=== PATIENT | female | born 1940 | race Caucasian/White ===

== ENCOUNTER 2018-01-09 09:47 | Outpatient (REF) | payer OTHER, SELFPAY ==
[2018-01-09 12:32] LABS: Anion Gap 8.6 mmol/L (3-11); BUN 14 mg/dL (7-18); CO2 27.4 mmol/L (21.0-32.0); CREATININE 0.92 mg/dL (0.55-1.02); Calcium 8.5 mg/dL (8.5-10.1); Chloride 107 mmol/L (98-107); Estimated GFR 58.89 (mL/min/1.73m2); Glucose 101 mg/dL (70-100); Potassium 3.8 mmol/L (3.5-5.1); Sodium 143 mmol/L (136-145)
== END 2018-01-09 09:48 ==
LOC: NCHCN 09:47
PROVIDERS: PCP Nurse Practitioner Family; Visit Provider Nurse Practitioner Family
DX: I10 Essential (primary) hypertension (principal)
CPT/HCPCS: 80048

== ENCOUNTER → 2018-03-19 09:23 | Outpatient (BNVA) | payer OTHER, SELFPAY | PROVIDERS: PCP Nurse Practitioner Family; Visit Provider Internal Medicine Cardiovascular Disease | DX: I25.10 Atherosclerotic heart disease of native coronary artery without angina pectoris (principal); I25.5 Ischemic cardiomyopathy; I10 Essential (primary) hypertension; E78.5 Hyperlipidemia, unspecified; R00.2 Palpitations; J44.9 Chronic obstructive pulmonary disease, unspecified | CPT/HCPCS: 99214 ==

== ENCOUNTER 2018-04-06 00:39 | Outpatient (CLI) | payer OTHER, SELFPAY ==
--- NOTE | 2018-04-06 14:00 | MERGE_ITS ---
*[facility]* *[facility]* [address] [place] [address] Date of study: 04/06/2018 Transthoracic Echocardiography M-mode, complete 2D, complete spectral Doppler, and color Doppler *STUDY CONCLUSIONS* Summary: 1. Left ventricle: The cavity size was normal. Systolic function was normal. The estimated ejection fraction was 60-65%. Some parameters suggest diastolic dysfunction. Doppler parameters are consistent with high ventricular filling pressure. 2. Aortic valve: There was mild regurgitation. 3. Mitral valve: There was mild systolic anterior motion of the chordal structures. There was moderate regurgitation. Early systolic MR. 4. Right ventricle: The cavity size was normal. Wall thickness was normal. Systolic function was normal. 5. Atrial septum: No defect or patent foramen ovale was identified. 6. Tricuspid valve: There was moderate regurgitation. 7. Pulmonary arteries: Pulmonary systolic pressure was in the range of 20mm Hg to 30mm Hg. 8. Inferior vena cava: The vessel was patent and normal in size. The respirophasic diameter changes were in the normal range (greater than or equal to 50%), consistent with normal central venous pressure. *PATIENT PRESENTATION* Height: 154.9cm ((61in) ) S/D Pressure: 171 / 80 Weight: 76.7kg ((168.6lb) ) BSA: 1.85m^2 Test start time: 02:10 PM. Test stop time: 03:00 PM. PERFORMING Unknown ORDERING Keara Castillo REFERRING Keara Castillo PERFORMING [facility] ELECTRICIAN SUPERVISOR RT Kody (R)(ESTEFANÍA), [facility] *PROCEDURE DATA* Procedure information: The patient was identified by two identifiers. This study was interpreted by [facility]. Pertinent images and digital data are archived for permanent storage and are available for subsequent review. No prior study was available for comparison. Study status: Routine. Transthoracic echocardiography. M-mode, complete 2D, complete spectral Doppler, and color Doppler. A Transthoracic Echocardiogram was performed. Scanning was performed from the parasternal, apical, subcostal, and suprasternal notch acoustic windows. Images were obtained using an [id number] cardiac ultrasound machine. Image quality was fair. Study completion: The patient tolerated the procedure well. History: PMH: CAD, cardiomyopathy, HTN , *CARDIAC ANATOMY* Left ventricle: The cavity size was normal. Systolic function was normal. The estimated ejection fraction was 60-65%. The tissue Doppler parameters were abnormal. Some parameters suggest diastolic dysfunction. Doppler parameters are consistent with high ventricular filling pressure. Aortic valve: Trileaflet; mildly thickened, mildly calcified leaflets. Doppler: There was no stenosis. There was mild regurgitation. VTI ratio of LVOT to aortic valve: 0.62. Valve area (VTI): 1.6cm^2. Indexed valve area (VTI): 0.9cm^2/m^2. Peak velocity ratio of LVOT to aortic valve: 0.6. Valve area (Vmax): 1.5cm^2. Indexed valve area (Vmax): 0.8cm^2/m^2. Mean velocity ratio of LVOT to aortic valve: 0.62. Valve area (Vmean): 1.6cm^2. Indexed valve area (Vmean): 0.9cm^2/m^2. Mean gradient (S): 6.5mm Hg. Peak gradient (S): 13.7mm Hg. Aorta: Aortic root: The aortic root was normal in size. Ascending aorta: The ascending aorta was mildly dilated. Mitral valve: There was mild systolic anterior motion of the chordal structures. Doppler: There was no evidence for stenosis. There was moderate regurgitation. Early systolic MR. Valve area by pressure half-time: 3.3cm^2. Indexed valve area by pressure half-time: 1.8cm^2/m^2. Peak gradient (D): 4.2mm Hg. Left atrium: The atrium was normal in size. Atrial septum: No defect or patent foramen ovale was identified. Right ventricle: The cavity size was normal. Wall thickness was normal. Systolic function was normal. Pulmonic valve: Doppler: There was no evidence for stenosis. There was mild to moderate regurgitation. Tricuspid valve: Doppler: There was moderate regurgitation. Pulmonary artery: Poorly visualized. Pulmonary systolic pressure was in the range of 20mm Hg to 30mm Hg. Right atrium: The atrium was normal in size. Pericardium: There was no pericardial effusion. Systemic veins: Inferior vena cava: Well visualized. The vessel was patent and normal in size. The respirophasic diameter changes were in the normal range (greater than or equal to 50%), consistent with normal central venous pressure. Baseline ECG: Normal sinus rhythm. Measurements Left ventricle Value Reference LV ID, ED, PLAX 4.6 cm 3.5 - 6.0 LV ID, ES, PLAX 2.8 cm 2.1 - 4.0 LV PW thickness, ED, PLAX 0.9 cm LV end-diastolic volume, 1-p A2C 57 ml LV ejection fraction, 1-p A2C 64 % LV end-diastolic volume, 1-p A4C 71 ml LV ejection fraction, 1-p A4C 59 % LV e', lateral 0.07 m/sec LV E/e', lateral 15 LV e', medial 0.048 m/sec LV E/e', medial 21 LV e', average 0.059 m/sec LV E/e', average 17 Ventricular septum Value Reference IVS thickness, ED, PLAX 0.8 cm LVOT Value Reference LVOT ID, A-P 1.8 cm LVOT area 2.5 cm^2 LVOT peak velocity, S 1.11 m/sec LVOT mean velocity, S 0.75 m/sec LVOT VTI, S 26.2 cm LVOT peak gradient, S 4.9 mm Hg LVOT mean gradient, S 2.6 mm Hg Stroke volume (SV), LVOT DP 66 ml Stroke index (SV/bsa), LVOT DP 36 ml/m^2 Aortic valve Value Reference Aortic valve peak velocity, S 1.8 m/sec Aortic valve mean velocity, S 1.2 m/sec Aortic valve VTI, S 42.0 cm Aortic mean gradient, S 6.5 mm Hg Aortic peak gradient, S 13.7 mm Hg VTI ratio, LVOT/AV 0.62 Aortic valve area, VTI 1.6 cm^2 Velocity ratio, peak, LVOT/AV 0.6 Aortic valve area, peak velocity 1.5 cm^2 Velocity ratio, mean, LVOT/AV 0.62 Aortic valve area, mean velocity 1.6 cm^2 Aortic valve area/bsa, mean velocity 0.9 cm^2/m^2 Aorta Value Reference Aortic root ID, ED 2.6 cm Ascending aorta ID, A-P, S 3.4 cm Left atrium Value Reference LA ID, A-P, ES 3.9 cm LA ID/bsa, A-P 2.1 cm/m^2 <=2.2 LA area, ES, A4C 18.3 cm^2 8.8 - 23.4 LA area, ES, A2C 14 cm^2 LA volume/bsa, ES, 1-p A4C 33 ml/m^2 LA volume, ES, 2-p 41 ml LA volume/bsa, ES, 2-p 22 ml/m^2 LA/aortic root ratio 1.51 Mitral valve Value Reference Mitral E-wave peak velocity 1.03 m/sec Mitral A-wave peak velocity 1.22 m/sec Mitral deceleration time (H) 233 ms 150 - 230 Mitral pressure half-time 68 ms Mitral peak gradient, D 4.2 mm Hg Mitral E/A ratio, peak 0.84 Mitral valve area, PHT, DP 3.3 cm^2 Pulmonary veins Value Reference Pulmonary vein peak velocity, S 0.65 m/sec Pulmonary vein peak velocity, D 0.42 m/sec Pulmonary vein velocity ratio, peak, 1.55 S/D Pulmonary vein A-wave reversal peak 0.43 m/sec velocity Pulmonary vein A-wave reversal 188 ms duration Tricuspid valve Value Reference Tricuspid regurg peak velocity 2.5 m/sec Tricuspid peak RV-RA gradient 24.4 mm Hg Right atrium Value Reference RA area, ES, A4C 16.7 cm^2 8.3 - 19.5 Legend: (L) and (H) danii values outside specified reference range. I have personally reviewed the images and have reviewed and edited the reported findings. Electronically signed by Zurdo Reza MD 04/06/2018 16:54
[2018-04-06 14:19] LABS: Anion Gap 6.3 mmol/L (3-11); BUN 14 mg/dL (7-18); CO2 29.7 mmol/L (21.0-32.0); CREATININE 0.95 mg/dL (0.55-1.02); Calcium 8.5 mg/dL (8.5-10.1); Chloride 105 mmol/L (98-107); Glucose 127 mg/dL (70-100); Potassium 3.5 mmol/L (3.5-5.1); Sodium 141 mmol/L (136-145)
== END 2018-04-06 00:59 ==
PROVIDERS: PCP Nurse Practitioner Family; Visit Provider Internal Medicine Cardiovascular Disease
DX: I25.10 Atherosclerotic heart disease of native coronary artery without angina pectoris (principal); I42.9 Cardiomyopathy, unspecified; I34.0 Nonrheumatic mitral (valve) insufficiency; R06.02 Shortness of breath; I10 Essential (primary) hypertension
CPT/HCPCS: 36415; 80048; 93306

== ENCOUNTER 2018-04-06 02:05 | Outpatient (CLI) | payer OTHER, SELFPAY ==
--- NOTE | 2018-04-29 09:47 | ZIOP_ITS ---
ZIO Patch Report DATE OF DICTATION April 29, 2018 STUDY INDICATION Palpitations. REQUESTING PROVIDER Keara Castillo M.D. FINDINGS The patient was monitored for 12 days and 17 hours. The predominant underlying rhythm was sinus rhythm. Average heart rate in sinus rhythm 68 beats per minute, range 51 to 118 beats per minute. There was rare supraventricular ectopy. There were 22 atrial runs, average heart rate 128 beats per m inute, range 89 to 171 beats per minute. The longest episode lasted 20 beats. There was frequent vent ricular ectopy, 5.3% PVC. There was a single 6 beat ventricular run with an average heart rate of 131 beats per minute. There were no pauses greater than 3 seconds. There was no higher degree heart block. There were 2 pat ient events. All events correlated with PVCs. FINAL INTERPRETATION Frequent PVCs at times symptomatic. Paroxysmal supraventricular tachycardia, symptomatic. Madhu Mobley M.D. CHRISTIN/ne T - 04/29/2018
== END 2018-04-06 02:25 ==
PROVIDERS: PCP Nurse Practitioner Family; Visit Provider Internal Medicine Cardiovascular Disease
DX: R00.2 Palpitations (principal); I49.3 Ventricular premature depolarization; I47.1 Supraventricular tachycardia
CPT/HCPCS: 93225

== ENCOUNTER 2018-04-29 08:11 | Outpatient (CLI) | payer OTHER, SELFPAY | END 2018-04-29 08:31 | PROVIDERS: PCP Nurse Practitioner Family; Referring Provider Internal Medicine Cardiovascular Disease; Visit Provider Student in an Organized Health Care Education/Training Program | DX: R00.2 Palpitations (principal); I49.3 Ventricular premature depolarization; I47.1 Supraventricular tachycardia | CPT/HCPCS: 0298T ==

== ENCOUNTER → 2018-05-13 10:34 | Outpatient (BNVA) | payer OTHER, SELFPAY | PROVIDERS: PCP Nurse Practitioner Family; Referring Provider Nurse Practitioner Family; Visit Provider Orthopaedic Surgery | DX: S42.201A Unspecified fracture of upper end of right humerus, initial encounter for closed fracture (principal); W01.0XXA Fall on same level from slipping, tripping and stumbling without subsequent striking against object, initial encounter | CPT/HCPCS: 99201; 99214 ==

== ENCOUNTER 2018-05-13 10:48 | Outpatient (CLI) | payer OTHER, SELFPAY ==
--- NOTE | 2018-05-13 10:43 | DI.RAD_ITS ---
SYMPTOMS/DIAGNOSIS: INJURY RIGHT SHOULDER: A comminuted mildly displaced fracture of the surgical neck and greater tuberosity of the right humerus is demonstrated. There is no evidence of a dislocation.
== END 2018-05-13 11:08 ==
PROVIDERS: PCP Nurse Practitioner Family; Visit Provider Physician Assistant Surgical
DX: S42.291A Other displaced fracture of upper end of right humerus, initial encounter for closed fracture (principal)
CPT/HCPCS: 99201; 73030

== ENCOUNTER 2018-09-14 13:52 | Outpatient (REF) | payer OTHER, SELFPAY ==
[2018-09-14 18:50] LABS: ALT 21 U/L (12-78); AST 18 U/L (15-37); Albumin 3.6 g/dL (3.4-5.0); Alkaline Phosphatase 125 U/L (46-116); Anion Gap 11.6 mmol/L (3-11); BUN 13 mg/dL (7-18); Bilirubin, Total 0.5 mg/dL (0.2-1.0); CO2 24.4 mmol/L (21.0-32.0); CREATININE 0.93 mg/dL (0.55-1.02); Calcium 8.9 mg/dL (8.5-10.1); Chloride 104 mmol/L (98-107); Estimated GFR 58.01 (mL/min/1.73m2); Glucose 142 mg/dL (70-100); Potassium 3.4 mmol/L (3.5-5.1); Sodium 140 mmol/L (136-145); Total Protein 6.7 g/dL (6.4-8.2)
== END 2018-09-14 14:12 ==
LOC: NCHCN 13:52
PROVIDERS: PCP Nurse Practitioner Family; Visit Provider Nurse Practitioner Family
DX: I10 Essential (primary) hypertension (principal)
CPT/HCPCS: 80053

== ENCOUNTER → 2019-01-14 11:42 | Outpatient (BNVA) | payer OTHER, SELFPAY | PROVIDERS: PCP Nurse Practitioner Family; Visit Provider Internal Medicine Cardiovascular Disease | DX: I25.810 Atherosclerosis of coronary artery bypass graft(s) without angina pectoris (principal); I12.9 Hypertensive chronic kidney disease with stage 1 through stage 4 chronic kidney disease, or unspecified chronic kidney disease; E78.5 Hyperlipidemia, unspecified; J44.9 Chronic obstructive pulmonary disease, unspecified; N18.9 Chronic kidney disease, unspecified | CPT/HCPCS: 99214 ==

== ENCOUNTER 2019-06-15 21:17 | Outpatient (REF) | payer OTHER, SELFPAY ==
[2019-06-15 19:19] LABS: Anion Gap 9.4 mmol/L (3-11); BUN 18 mg/dL (7-18); CO2 26.6 mmol/L (21.0-32.0); CREATININE 0.86 mg/dL (0.55-1.02); Calcium 8.7 mg/dL (8.5-10.1); Chloride 107 mmol/L (98-107); Glucose 135 mg/dL (74-106); Potassium 3.9 mmol/L (3.5-5.1); Sodium 143 mmol/L (136-145)
== END 2019-06-15 21:37 ==
LOC: NCHCN 21:17
PROVIDERS: PCP Nurse Practitioner Family; Visit Provider Nurse Practitioner Family
DX: I10 Essential (primary) hypertension (principal)
CPT/HCPCS: 80048

== ENCOUNTER 2019-07-15 08:48 | Outpatient (CLI) | payer OTHER, SELFPAY | END 2019-07-15 09:08 | PROVIDERS: PCP Nurse Practitioner Family; Visit Provider Internal Medicine Cardiovascular Disease | DX: I25.10 Atherosclerotic heart disease of native coronary artery without angina pectoris (principal); E78.5 Hyperlipidemia, unspecified; Z91.19 Patient's noncompliance with other medical treatment and regimen; I10 Essential (primary) hypertension | CPT/HCPCS: 99214 ==

== ENCOUNTER 2021-06-28 03:44 | Emergency (ER) | payer OTHER, SELFPAY ==
[2021-06-28 03:42] VITALS: BP 157/86; PULSE 78; RESP 18; TEMP 36.3; O2SAT 75
--- NOTE | 2021-06-28 03:45 | RT.EKG_ITS ---
APPROVED REPORT Exam: Resting ECG Reason for Exam: syncope Patient Location: E HR:76 bpm ECG Measurements Heart Rate 76 AXIS [place] 164 P 19 QRSd 86 QRS -23 QT 414 T 85 QTc 466 Conclusion Sinus rhythm...normal P axis, V-rate 60- 99 Physician: no stemi
--- NOTE | 2021-06-28 03:45 | DI.CT_ITS ---
Exam(s) CT HEAD CERV SPINE FACIAL WO EXAM: CT HEAD CERV SPINE FACIAL WO COMPARISON: CT CT head/brain wo con from 05/03/2018 FINDINGS: CT examination of the cervical spine was performed without contrast administration. There are marked degenerative changes of the cervical spine. There is no evidence of acute cervical spine fracture or dislocation. Intervertebral disc spaces are well maintained. Tracheolaryngeal structures appear intact. No cervical mass or adenopathy. Noncontrast cranial CT was performed. There is mild generalized cerebral atrophy and there are patchy areas of decreased attenuation in per iventricular white matter consistent with microvascular ischemic changes. There is a right scalp hem atoma.. No evidence of acute intracranial hemorrhage, mass effect, or midline shift. No calvarial fracture. The orbital and temporal bone structures appear intact. Visualized mastoid air cells and paranasal sinuses appear clear. Additional scanning of the maxillofacial region was performed, no evidence of orbital bony or soft ti ssue injury. No facial fracture seen. Visualized mandible is unremarkable. IMPRESSION: No evidence of acute cervical spine injury. No evidence of acute intracranial injury. No evidence of acute facial fracture. RADIATION DOSE DELIVERED: 1,544.25mGy.cm Total DLP 1,544.25mGy.cm Total DLP CTDIvol DATA REPOSITORY: All CT scans at this facility are submitted to the National Radiology Data Registry (NRDR) Dose Index Registry (DIR) with the [employer] (ACR). RADIATION OPTIMIZATION: All CT scans at this facility use at least one of these dose optimization te chniques: automated exposure control; mA and/or kV adjustment per patient size (includes targeted exa ms where dose is matched to clinical indication); or iterative reconstruction.
--- NOTE | 2021-06-28 03:49 | W.ED.GENAD ---
Discharge Plan Disposition Patient Disposition: HOME Condition: Good Discharge Details Clinical Impression: Fall, Contusion of scalp Primary Care Provider: Karoline Conteh ED Provider: Jose C Shea Home Meds and New Rx's Prescriptions: Continued fluticasone propion-salmeterol [Advair Diskus] 250-50 mcg/dose blister with device 1 inh IH BID RF: 0 (DME) nebulizers Misc See Rx Instructions .ROUTE .MEDSUPPLY Qty: 1 RF: 0 ipratropium-albuterol 0.5 mg-3 mg(2.5 mg base)/3 mL solution for nebulization 3 ml IH TID PRNRF: 0 albuterol sulfate [ProAir HFA] 90 mcg/actuation HFA aerosol inhaler 2 puff IH Q6H PRNRF: 0 potassium chloride [Klor-Con 10] 10 mEq tablet extended release 10 meq PO BID RF: 0 losartan 50 mg tablet 50 mg PO DAILY Qty: 30 RF: 6 metoprolol succinate 50 mg tablet extended release 24 hr 50 mg PO DAILY Qty: 30 RF: 6 furosemide [Lasix] 20 MG tablet 20 mg PO DAILY RF: 0 Spiriva with HandiHaler 1 PUFF capsule, w/inhalation device 30 cap Inhalation DAILY RF: 0 Discharge Instructions Instructions: Contusion in Adults (ED) Additional Instructions: At this time thankfully there is no fracture or bleed in your brain. The contusion on your scalp will take a few weeks to go away. The bruising and contusion on your right eyebrow will also take some time to resolve. It will cause bruising that will go down the right side of your face. Please use ice for the next 48 hours and then heat after that to help it reabsorb. If you notice any worsening of your symptoms, or any new symptoms such as vomiting, diarrhea, fever, chills, shortness of breath, chest pain, numbness, weakness, or fainting , please return immediately to the emergency department for reevaluation. Please follow up with your primary care provider as soon as possible for reassessment and reevaluation. As always, it was a pleasure participating in your medical care today. Referrals: Karoline Conteh [Primary Care Provider] - Medical Decision Making This is an 81-year-old female with a past medical history of hypertension, coronary artery disease with cardiac stent, ischemic cardiomyopathy, COPD, GERD, who lives with her daughter, who presents today after a fall. Patient got up to have a bowel movement this evening, she states she either fell or passed out while on the toilet. She does not recall. She hit her right head and right eyebrow. She was brought in by EMS for further evaluation. Patient is notably stoic, and has no complaints at this time. She denies chest pain, head pain, numbness tingling or weakness. She denies any other complaints, modifying factors, or other historical components. Physical exam demonstrates a notable hematoma over her right temporal bone. A small hematoma over her right upper orbital bone/brow. No active bleeding. Tetanus shot is up-to-date. Suspect contusion and hematoma. However because of the patient's age we will get a CT scan to rule out acute process. We will gently rehydrate, basic lab screening EKG, monitor closely and reassess. 4:[address] scans have returned negative for significant bleed or fracture. Partial right-sided scalp hematoma but no other concerning findings of the orbits. No other acute process. Laboratory work-up is stable. On reassessment patient remains neurologically intact. Patient was able to get up and ambulate with a walker. Patient will be discharged home. I contacted the daughter and discussed this with her. She agrees on the plan. We will get lift assist as needed to help the patient into the home per plan with daughter. I have extensively reviewed the treatment plan and discharge instructions with the patient and their family. I have addressed all patient concerns at this time. The patient and family was made aware of what symptoms to monitor for that would warrant a return to the emergency department. Discussed the plan with the patient and family, they demonstrate verbal understanding and agreement with our assessment and plan at this time. The documentation in this chart was dictated using CPower dictation software. Please excuse any dictation errors. FINDINGS: Brain: Mild age-related chronic microvascular changes are noted within the white matter. Cerebral ventricles: The ventricles and sulci are mildly prominent compatible with age-appropriate atrophy. Paranasal sinuses: Visualized sinuses are unremarkable. No fluid levels. Mastoid air cells: Visualized mastoid air cells are well aerated. Bones/joints: Unremarkable. No acute fracture. Soft tissues: Right-sided parietal scalp hematoma. IMPRESSION: 1. Right-sided parietal scalp hematoma. 2. Mild age-appropriate atrophy and chronic microvascular change FINDINGS: Orbital cavity: Orbits are normal. Globes are unremarkable. Bones/joints: No acute fracture. Paranasal sinuses: Normal. No air-fluid levels. Soft tissues: Unremarkable. IMPRESSION: No acute findings. FINDINGS: Vertebrae: Cervical degenerative disc disease and facet joint arthropathy noted. No evidence for fracture, dislocation or subluxation. Soft tissues: Unremarkable. IMPRESSION: No acute findings Thank you for allowing us to participate in the care of your patient. Dictated and Authenticated by: Best Gabriel MD 06/28/2021 4:34 AM Eastern Time ([place] & [place]) HPI General Date/Time Provider Initiated Documentation: 06/28/21 04:49. HPI Narrative: This is an 81-year-old female with a past medical history of hypertension, coronary artery disease with cardiac stent, ischemic cardiomyopathy, COPD, GERD, who lives with her daughter, who presents today after a fall. Patient got up to have a bowel movement this evening, she states she either fell or passed out while on the toilet. She does not recall. She hit her right head and right eyebrow. She was brought in by EMS for further evaluation. Patient is notably stoic, and has no complaints at this time. She denies chest pain, head pain, numbness tingling or weakness. She denies any other complaints, modifying factors, or other historical components. Related Data Home Medications Medication Instructions Recorded Confirmed Spiriva with HandiHaler 30 cap INHALATION DAILY 02/08/15 06/28/21 furosemide [Lasix] 20 mg PO DAILY 02/08/15 06/28/21 albuterol sulfate 90 mcg/actuation 2 puff IH Q6H PRN 01/12/19 06/28/21 aerosol inhaler fluticasone 250 mcg-salmeterol 50 1 inh IH BID 01/12/19 06/28/21 mcg/dose blistr powdr for inhalation ipratropium 0.5 mg-albuterol 3 mg 3 ml IH TID PRN ml 01/12/19 06/28/21 (2.5 mg base)/3 mL nebulization soln nebulizers #1 each 01/12/19 06/28/21 potassium chloride 10 mEq 10 meq PO BID 01/12/19 06/28/21 tablet,extended release losartan 50 mg tablet 50 mg PO DAILY #30 tab 07/15/19 06/28/21 metoprolol succinate 50 mg 50 mg PO DAILY #30 tab 07/15/19 06/28/21 tablet,extended release 24 hr Previous Rx's Medication Instructions Recorded losartan 50 mg tablet 50 mg PO DAILY #30 tab 07/15/19 metoprolol succinate 50 mg 50 mg PO DAILY #30 tab 07/15/19 tablet,extended release 24 hr Allergies Allergy/AdvReac Type Severity Reaction Status Date / Time lisinopril Allergy Mild cough Verified 06/28/21 03:45 General Stated Complaint: HeadInjury VIPUL: 4 Review of Systems All systems reviewed & are unremarkable except as noted in HPI and below PFSH All Active Problems (Updated 06/28/21 @ 04:59 by Jose C Shea DO) Fall (Acute) Contusion of scalp (Acute) Noncompliance (Acute) CAD (coronary artery disease) (Acute) stent placement 2015 Dyslipidemia (Acute) Hypertension (Chronic) Medical History COPD (chronic obstructive pulmonary disease) GERD (gastroesophageal reflux disease) Ischemic cardiomyopathy Surgical History H/O heart artery stent (~2015) Social History Smoking/Tobacco Use Status: Never Smoking risk assessment performed?: Yes Drug use: Never What type of physical activity do you participate in: none Do you feel safe at home: Yes Do you feel safe in your relationship?: Yes Exam Narrative Exam Narrative: 1.Const: Well-nourished, Well-developed, appearing stated age 2.Eyes: PERRL, no conjunctival injection, and symmetrical lids. 3.ENT: Atraumatic external nose and ears. Patient does demonstrate a hematoma over her right temporal bone, as well as hematoma over her right brow. Minimal tenderness there. Moist MM. Neck: Symmetric, trachea midline, No thyromegaly. There is no evidence of raccoon eyes, gamez sign, CSF rhinorrhea, mastoid tenderness, cranial crepitus, hemotympanum, exophthalmos, or hyphema. Patient demonstrates intact dentition with no signs of tooth avulsion or fracture, dental plate is easily movable appropriately, no signs of jaw deformity, no evidence of a LeFort's fracture, with an intact palate, nose and orbital region. There is no evidence of a nasal septal hematoma. No proptosis. Jaw closes symmetrically. Airway is clear. 4.CVS: +S1/S2, No murmurs or gallops. Peripheral pulses 2+ and equal in all extremities. Brisk capillary refill in all extremities. 5.RESP: Unlabored respiratory effort. Clear to auscultation bilaterally. No wheezes rales or rhonchi 6.GI: Soft, Nontender/Nondistended, No hepatosplenomegaly. No guarding or rebound. 7.MSK: Normocephalic/Atraumatic, Extremities w/o deformity or ttp No cyanosis or clubbing, Normal movement of all extremities. Trace pitting edema of the lower extremities. No midline cervical thoracic or lumbar spine tenderness. 8.Skin: Warm, Dry. No rashes or lesions. 9.Neuro: cancer program consultant II-XII grossly intact. Sensation grossly intact, no focal neurologic deficits. 10.Psych: (AAO) x3. Appropriate mood and affect Course Vital Signs Vital signs: Vital Signs Temperature 36.3 C L 06/28/21 03:42 Pulse 78 06/28/21 03:42 Respiratory Rate 18 06/28/21 03:42 Blood Pressure 157/86 H 06/28/21 03:42 Pulse Oximetry 75 L 06/28/21 03:42 Temperature 36.3 C L 06/28/21 03:42 Pulse 78 06/28/21 03:42 Respiratory Rate 18 06/28/21 03:42 Respiratory Effort 06/28/21 03:46 Blood Pressure 157/86 H 06/28/21 03:42 Pulse Oximetry 75 L 06/28/21 03:42 Pain Level 3 06/28/21 03:42
[2021-06-28 03:56] LABS: Abs Immature Grans 0.01 10^3/uL (0.0-0.06); Absolute Basophil Count 0.01 10^3/uL (0.0-0.2); Absolute Eosinophil Count 0.03 10^3/uL (0.0-0.7); Absolute Lymphocyte Count 1.62 10^3/uL (1.2-3.4); Absolute Monocyte Count 0.29 10^3/uL (0.1-0.8); Basophils % 0.2; Eosinophils % 0.7; HCT 41.7 % (36.0-46.0); HGB 13.1 g/dL (11.2-15.7); Immature Grans % 0.2; MCH 26.6 pg (27.0-33.0); MCHC 31.4 % (32.0-36.0); MCV 84.8 fL (80-95); MPV 9.1 fL (8.0-11.0); Monocytes % 6.8; Neutrophils % 54.1; Nucleated RBC 0 %; Platelet Count 106 10^3/uL (130-400); RBC 4.92 10^6/uL (3.93-5.22); RDW 13.5 % (11.7-14.6); RDW-SD 41.8 fL; WBC 4.26 10^3/uL (4.4-10.8)
[2021-06-28] MEDS: Normal Saline 1,000 ML 150 ML IV (04:00)
[2021-06-28 04:01] VITALS: BP 174/74; PULSE 75; RESP 20; O2SAT 96
[2021-06-28 04:15] LABS: Troponin I < 50 ng/L (<or=60)
[2021-06-28 04:25] LABS: ALT 22 U/L (14-59); AST 23 U/L (15-37); Albumin 3.1 g/dL (3.4-5.0); Alkaline Phosphatase 102 U/L (46-116); Anion Gap 9.9 mmol/L (3-11); BUN 12 mg/dL (7-18); Bilirubin, Total 0.6 mg/dL (0.2-1.0); CO2 25.1 mmol/L (21.0-32.0); Chloride 105 mmol/L (98-107); Estimated GFR 52.95 (mL/min/1.73m2); Glucose 111 mg/dL (74-106); Potassium 3.4 mmol/L (3.5-5.1); Sodium 140 mmol/L (136-145); Total Protein 6.4 g/dL (6.4-8.2)
--- NOTE | 2021-06-28 04:35 | DI.VRAD_ITS ---
PROCEDURE INFORMATION: Exam: CT Head Without Contrast Exam date and time: 06/28/2021 3:49 AM Age: 81 years old Clinical indication: Other: Fall, syncope, left temporal hematoma TECHNIQUE: Imaging protocol: Computed tomography of the head without contrast. COMPARISON: CT head/brain wo con 05/13/2018 4:29 PM FINDINGS: Brain: Mild age-related chronic microvascular changes are noted within the white matter. Cerebral ventricles: The ventricles and sulci are mildly prominent compatible with age-appropriate atrophy. Paranasal sinuses: Visualized sinuses are unremarkable. No fluid levels. Mastoid air cells: Visualized mastoid air cells are well aerated. Bones/joints: Unremarkable. No acute fracture. Soft tissues: Right-sided parietal scalp hematoma. IMPRESSION: 1. Right-sided parietal scalp hematoma. 2. Mild age-appropriate atrophy and chronic microvascular change. PROCEDURE INFORMATION: Exam: CT Maxillofacial Without Contrast Exam date and time: 06/28/2021 3:49 AM Age: 81 years old Clinical indication: Other: Fall, syncope, left temporal hematoma TECHNIQUE: Imaging protocol: Computed tomography images of the face without contrast. COMPARISON: CT head/brain wo con 05/13/2018 4:29 PM FINDINGS: Orbital cavity: Orbits are normal. Globes are unremarkable. Bones/joints: No acute fracture. Paranasal sinuses: Normal. No air-fluid levels. Soft tissues: Unremarkable. IMPRESSION: No acute findings. PROCEDURE INFORMATION: Exam: CT Cervical Spine Without Contrast Exam date and time: 06/28/2021 3:49 AM Age: 81 years old Clinical indication: Other: Fall, syncope, left temporal hematoma TECHNIQUE: Imaging protocol: Computed tomography images of the cervical spine without contrast. COMPARISON: CT head/brain wo con 05/13/2018 4:29 PM FINDINGS: Vertebrae: Cervical degenerative disc disease and facet joint arthropathy noted. No evidence for fracture, dislocation or subluxation. Soft tissues: Unremarkable. IMPRESSION: No acute findings Dictated and Authenticated by: Best Gabriel MD. Ordering:YEVGENIY Woodall MD
[2021-06-28 05:08] VITALS: BP 183/57; PULSE 78; RESP 20
== END 2021-06-28 05:30 | disposition home or self-care (01) ==
LOC: ER 05:31
PROVIDERS: Emergency Provider Student in an Organized Health Care Education/Training Program; PCP Nurse Practitioner Family
DX: S00.03XA Contusion of scalp, initial encounter (principal); W18.39XA Other fall on same level, initial encounter; R55 Syncope and collapse
CPT/HCPCS: 36415; 80053; 93005; 99284; 70450; 70486; 72125; 84484; 85025; 93010; 99283